=== PATIENT | male | born 1970 | race Hispanic/Latino ===

== ENCOUNTER → 2018-04-10 | Emergency (ER) | payer OTHER ==
[~2018-04-10] VITALS: Ht 175.3 cm; Wt 90.7 kg
[~2018-04-10] MED LIST: AZITHROMYCIN250 MG PO; DOCUSATE SODIU100 MG PO; IBUPROFEN600 MG PO; LIDODERM700 MG TOP; PROVENTIL HFA6.7 GM INH; SEROQUEL100 MG PO; TESSALON PERLE100 MG PO; TRUVADA 200 MG1 EACH PO; VITAMIN B-121000 MC1 PO
--- NOTE | 2018-04-10 22:24 | EKG ---
[facility] [address] [facility] [place], [place] [address] Signed Normal sinus rhythm Normal ECG When compared with ECG of 30-AUG-2016 10:40, No significant change was found Confirmed by UTE RODRIGUEZ MD ([id number]) on 04/10/2018 10:24:18 PM Electronically Signed By: UTE RODRIGUEZ MD 04/10/18 2224 PATIENT NAME: LIANNE MOSQUEDAWilliam RIVAS Electrocardiogram DATE OF : 66 PHYSICIAN: UTE RODRIGUEZ MD REPORT #: [id number] REPORT IS CONFIDENTIAL AND NOT TO BE RELEASED WITHOUT AUTHORIZATION
== END ==
LOC: ED 18:50
DX: R07.89 Other chest pain (principal); G62.9 Polyneuropathy, unspecified; Z88.5 Allergy status to narcotic agent
CPT/HCPCS: 71045; 80053; 84484; 85025; 93005; 93010; 99284

== ENCOUNTER 2020-07-25 07:30 | Day surgery (SDC) | payer OTHER ==
[~2020-07-25] VITALS: Ht 175.3 cm; Wt 95.2 kg
--- NOTE | 2020-07-25 10:01 | NUR ---
07/25/20 1001 Sheets,Ladi 0999 PT ARRIVED TO PACU ON 2L NC, VSS. PT WAKES EASILY AND DENIES CONCERNS, PT ENCOURAGED TO PASS GAS. PT ABLE TO PASS LARGE AMOUNT OF GAS. PT BACK TO SLEEP AND SMALL AMOUNT OF SNORING NOTED. VSS.
--- NOTE | 2020-07-26 06:38 | OR ---
[facility] [address] [place], [place] [address] Signed DATE OF OPERATION: 07/25/2020 SURGEON: Connor Bonilla MD DATE OF PROCEDURE: 07/25/2020 PREOPERATIVE DIAGNOSIS: Screening. POSTOPERATIVE DIAGNOSES: 1. A 4 mm polyp mid hepatic flexure. 2. A 4 mm polyp proximal transverse colon. 3. Minimal to moderate sigmoid diverticulosis. PROCEDURE: Colonoscopy with hot biopsy. ESTIMATED BLOOD LOSS: None. INDICATIONS: Erickson is a 50-year-old gentleman, asked to see me for initial screening colonoscopy. He has no lower GI complaints. There is no family history of colon cancer or polyps. In the office, I gave him a pamphlet on colonoscopy and we looked at that together along with the risks including, but not limited to gas, bloating, crampy abdominal pain, bleeding, perforation requiring surgery, and missed diagnosis. We also discussed the need for IV conscious sedation. He had expressed understanding and wished to proceed. PROCEDURE NOTE: Erickson was taken into our endoscopy suite and placed in the left lateral decubitus position. He was given IV sedation with 4 mg of Versed and 100 mcg of fentanyl. A digital rectal exam was performed was performed and this showed some induration and swelling to the prostate as expected with his age. The adult colonoscope was introduced, advanced all around into the cecum under direct visualization of the camera without difficulty. It took just a little bit of abdominal compression in order to advance the scope. His prep was quite excellent. We could easily see the appendiceal orifice and the ileocecal valve. The scope was slowly withdrawn. We took pictures throughout for photodocumentation. He had two tiny polyps easily removed with hot biopsy forceps. He does have diverticula in the sigmoid colon. They were minimal to Electronically Signed By: CONNOR BONILLA MD 07/26/20 0638 PATIENT NAME: ERICKSON MOSQUEDA OPERATIVE REPORT DATE OF : 66 REPORT #: [id number] PHYSICIAN: CONNOR BONILLA MD PCP: SANGITA RESTREPO MD REPORT IS CONFIDENTIAL AND NOT TO BE RELEASED WITHOUT AUTHORIZATION [facility] [address] [place], [place] [address] Signed moderate in size, minimal to moderate in number, and scattered about. The rectum was unremarkable. Upon retroflexion of scope, there was no additional pathology noted above the anal canal. After this, the gas was suctioned out and colonoscope removed. Erickson tolerated the procedure quite well. RECOMMENDATIONS: I will see Erickson in my office in 7 to 10 days to review his results. Connor Bonilla MD ALB/MODL /[id number] cc: Sangita Restrepo MD Copies: ~ Electronically Signed By: CONNOR BONILLA MD 07/26/20 0638 PATIENT NAME: ERICKSON MOSQUEDA OPERATIVE REPORT DATE OF : 66 REPORT #: [id number] PHYSICIAN: CONNOR BONILLA MD PCP: SANGITA RESTREPO MD REPORT IS CONFIDENTIAL AND NOT TO BE RELEASED WITHOUT AUTHORIZATION
--- NOTE | 2020-07-26 16:49 | PATH ---
[facility] [address] [facility] [place], [place] [address] Signed SPECIMEN(S): A HEPATIC FLEXURE POLYP SPECIMEN(S): B PROXIMAL TRANSVERSE POLYP SPECIMEN SOURCE: A. HEPATIC FLEXURE POLYP B. PROXIMAL TRANSVERSE POLYP CLINICAL HISTORY: Screening colonoscopy; diverticulosis, colon polyps. MICROSCOPIC DESCRIPTION: Histologic sections of all submitted blocks are examined by light microscopy. These findings, together with the gross examination, support the pathologic diagnosis. FINAL PATHOLOGIC DIAGNOSIS: A. Colon, hepatic flexure, polyp, polypectomy: - Tubular adenoma. - Negative for high-grade dysplasia or malignancy. B. Colon, proximal transverse, polyp, polypectomy: - Colonic mucosa with no histopathologic abnormality. - Negative for dysplasia or malignancy. NAL:cml:C2NR GROSS DESCRIPTION: Two specimens are received in two containers, labeled "GV." A. The specimen, labeled "GV," and designated on the requisition "hepatic flexure polypectomy," is received in formalin and consists of one fragment of pink-hanson tissue (0.3 x 0.3 x 0.2 cm). The specimen is submitted entirely in cassette (A1). B. The specimen, labeled "GV," and designated on the requisition "proximal transverse polypectomy," is received in formalin and consists of one fragment of pink-hanson tissue (0.3 x 0.2 x 0.2 cm). The specimen is submitted entirely in cassette (B1). AC (under the direct supervision of a pathologist) The Gross Description was prepared using a voice recognition system. The report was reviewed for accuracy; however, sound-alike word errors, addition and/or deletions may occur. If there is any question about this report, please contact Client Services. PERFORMING LABORATORY: The technical component was performed by [facility], Lani Randlecornel [place], PATIENT NAME: TERRY MOSQUEDA PATHOLOGY DATE OF : 66 REPORT #: [id number] PHYSICIAN: MARISOL PATHOLOGY PCP: MARISOL PEREZ MD REPORT IS CONFIDENTIAL AND NOT TO BE RELEASED WITHOUT AUTHORIZATION [facility] [address] [place], [place] [address] [place] [address] (Car Icer: Leann Simmons MD; CLIA# [id number]). Professional interpretation was performed by [facility], [address] [address] (CLIA# [id number]). Diagnostician: Latricia Rico MD Pathologist Electronically Signed 07/26/2020 Copies: ~ PATIENT NAME: TERRY MOSQUEDA PATHOLOGY DATE OF : 66 REPORT #: [id number] PHYSICIAN: MARISOL PATHOLOGY PCP: CHRIS,MARISOL MD REPORT IS CONFIDENTIAL AND NOT TO BE RELEASED WITHOUT AUTHORIZATION
== END 2020-07-25 10:55 | disposition home or self-care (01) ==
LOC: OPS 07:30 → DS 09:00 → OPS 09:00
PROVIDERS: Colon & Rectal Surgery
PROC: 0DBL8ZZ Excision of Transverse Colon, Via Natural or Artificial Opening Endoscopic (ICD-10-PCS; principal; 2020-07-25 09:00)
DX: Z12.11 Encounter for screening for malignant neoplasm of colon (principal); D12.3 Benign neoplasm of transverse colon; K57.30 Diverticulosis of large intestine without perforation or abscess without bleeding
CPT/HCPCS: 99153; G0500; J2250; J3010

== ENCOUNTER 2021-07-06 06:25 | Day surgery (SDC) | payer OTHER ==
[~2021-07-06 06:25] MED LIST changes: +CIPRO500 MG PO; +PRAVASTATIN SOD40 MG PO
--- NOTE | 2021-07-06 08:42 | NUR ---
07/06/21 0868 Sharron Hammond 0862 PATIENT ARRIVES TO PACU RESTING WITH EYES CLOSED. DOES NOT RESPOND TO VERBAL STIMULI. RESP EVEN AND UNLABORED, MASK AT 8 LITERS.
--- NOTE | 2021-07-06 10:11 | OR ---
[facility] [address] [place], [place] [address] Signed DATE OF OPERATION: 07/06/2021 SURGEON: Connor Bonilla MD PREOPERATIVE DIAGNOSES: 1. Right upper quadrant abdominal wall subcutaneous mass. 2. Epigastric versus supraumbilical trocar site incisional hernia. POSTOPERATIVE DIAGNOSES: 1. Right upper quadrant subcutaneous lipoma. 2. Significantly indurated adipose tissue overlying trocar site abdominal wall scar without hernia number. PROCEDURE: 1. Excision of right upper quadrant subcutaneous mass. 2. Wound exploration. ESTIMATED BLOOD LOSS: None. INDICATIONS: Erickson is a 51-year-old gentleman I have known for a number years. He came back with two concerns. He had a palpable mass in the right subcostal margin. He said it has been increasing in size and causes some pain. He wanted to have that removed. Clinically, it was most consistent with a lipoma. In addition, he has a supraumbilical trocar site incision that he felt was a hernia. He said sometimes he feels like it is quite large and other times he said he thinks it is smaller. On exam in the office, we thought palpable lump was slightly above the supraumbilical incisional scar. I explained to him it could be an epigastric hernia or could be a trocar site incisional hernia. He felt like both of these were bothering quite a bit. 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 We decided we would excise the lipoma and explored the wound and repaired the any hernia found. In the office, I gave him a booklet on hernias and we had reviewed those in detail. He understands the difference between the primary suture repair and a mesh repair. He understands there is risk to surgery including, but not limited to bleeding, infection, scarring, change in contour of the skin, damage to bowel infection of mesh requiring removal of recurrent hernias and chronic pain. He had expressed understanding and wished to proceed. DESCRIPTION OF PROCEDURE: Electronically Signed By: CONNOR BONILLA MD 07/06/21 1011 PATIENT NAME: ERICKSON MOSQUEDA OPERATIVE REPORT DATE OF : 66 REPORT #: [id number] PHYSICIAN: CONNOR BONILLA MD PCP: SANGITA PEREZ MD REPORT IS CONFIDENTIAL AND NOT TO BE RELEASED WITHOUT AUTHORIZATION [facility] [address] [place] [address] Signed I met with Erickson and his sister in our preop area. We all agreed on the two areas and marked them appropriately. On this occasion, Ericskon and I both agreed that the lump seemed to be more directly underneath the incision when he was lying supine rather than standing upright. Again, we did not feel this was reducible. After this, we took Erickson in the operating room and placed in the supine position under general endotracheal tube anesthesia. He was given preoperative antibiotics along with subcutaneous heparin. SCDs were utilized. He was then prepped and draped in the usual sterile fashion. We made a transverse incision over the subcutaneous mass in the right subcostal area. This was carried down and around the tissue bluntly and with the cautery. The lipoma probably 3 cm in diameter was evacuated and passed off the field. The wound was explored. No other lipoma was noted. Local anesthetic was injected into the wound. The wound was irrigated and suctioned out until clear. We closed the dermis with interrupted 3-0 subcuticular Monocryl sutures. Skin edges were reapproximated with a running 5-0 fast absorbing plain gut suture. After this, we approached the supraumbilical incision. It was opened sharply transversely with the help of a 15 blade knife. We carried this down to the tissues bluntly and with the cautery. We approached the midline fascia just above the his previous trocar sites abdominal wall scar. We carried that inferiorly toward the umbilicus. We found a rather large 2-3 cm very firm indurated round piece of adipose tissue adherent to the trocar site abdominal wall scar. However, we did not specifically find a hernia. We freed up all that tissue down to the level of umbilicus and found no additional hernia inferior to that trocar site abdominal wall scar. We excised that very indurated adipose tissue and passed it off the field. We then traveled up the midline superiorly 6 if not 8 cm looking for an epigastric hernia. He did not find one. We also palpated that subcutaneous adipose tissue superiorly and found no other concerns such as a lipoma. After that, we injected local anesthetic in the abdominal wall along with subcutaneous tissues. The wound was irrigated and suctioned out until clear. We brought the soft adipose tissue back together with interrupted 3-0 Monocryl sutures and then brought the dermis together with interrupted 3-0 subcuticular Monocryl sutures. The incision was reapproximated with a running 5-0 fast absorbing plain gut suture. Dry gauze and tape were then applied. After this, Erickson was awakened from his anesthesia, extubated in the OR, and taken to recovery room in stable condition. Connor Bonilla MD ALB/MODL Electronically Signed By: CONNOR BONILLA MD 07/06/21 1011 PATIENT NAME: ERICKSON MOSQUEDA OPERATIVE REPORT DATE OF : 66 REPORT #: [id number] PHYSICIAN: CONNOR BONILLA MD PCP: SANGITA PEREZ MD REPORT IS CONFIDENTIAL AND NOT TO BE RELEASED WITHOUT AUTHORIZATION [facility] [address] [place], [place] [address], [place] [address] Signed /[id number] cc: MD Sangita Ortiz MD Copies: CONNOR BONILLA MD ~ Electronically Signed By: CONNOR BONILLA MD 07/06/21 1011 PATIENT NAME: ERICKSON MOSQUEDA OPERATIVE REPORT DATE OF : 66 REPORT #: [id number] PHYSICIAN: CONNOR BONILLA MD PCP: SANGITA PEREZ MD REPORT IS CONFIDENTIAL AND NOT TO BE RELEASED WITHOUT AUTHORIZATION
--- NOTE | 2021-07-06 10:16 | NUR ---
AFTER RETURN TO , PT AMBULATED TO BR AND VOIDED 150 ML CLEAR YELLOW URINE. DENIES NAUSEA. REPORTS 6/10 INCISIONAL PAIN.
--- NOTE | 2021-07-06 11:13 | NUR ---
REVIEWED DISCHARGE INSTRUCTIONS WITH PT AND SISTER AT BEDSIDE. RX GIVEN WITH COPY OF DISCHARGE INSTRUCTIONS. TURKEY SANDWICH PROVIDED. REPORTS PAIN DECEREASED TO 02/07. DENIES NAUSEA
--- NOTE | 2021-07-10 08:56 | PATH ---
[facility] [place] [facility] [address] [facility] [place] [address] Signed SPECIMEN(S): A ABDOMINAL SUBQ MASS RIGHT UPPER QUADRANT SPECIMEN SOURCE: A. ABDOMINAL SUBQ MASS RIGHT UPPER QUADRANT CLINICAL HISTORY: Epigastric hernia, lipoma. Excise right upper quadrant SQ mass and repair hernia. FINAL PATHOLOGIC DIAGNOSIS: Mass, right upper quadrant, abdominal subcutaneous: - Angiolipoma. TWK:caw:C2NR MICROSCOPIC EXAMINATION: The lesion consists of a benign lipoma with a characteristic integrated pattern of vascular proliferation and adipose tissue. Atypical features are not seen, and there is no evidence of malignancy. TWK GROSS DESCRIPTION: The specimen, labeled "GV, A.," and designated on the requisition "abdominal subcutaneous mass right upper quadrant," is received in formalin and consists of a circumscribed fatty tissue nodule measuring 4.2 x 2.3 x 1.8 cm. Cut surface is homogenous and credit representative sections are submitted in cassette (A1). AT (under the direct supervision of a pathologist) The Gross Description was prepared using a voice recognition system. The report was reviewed for accuracy; however, sound-alike word errors, addition and/or deletions may occur. If there is any question about this report, please contact Client Services. PERFORMING LABORATORY: The technical component was performed by [employer], [address] [place] [id number] (Lan Analyst: Leann Simmons MD; CLIA# [id number]). The professional interpretation [facility], [address] [place] [address]. Diagnostician: Sacha Grimm MD Pathologist PATIENT NAME: TERRY MOSQUEDA PATHOLOGY DATE OF : 66 REPORT #: [id number] PHYSICIAN: INCYTE PATHOLOGY PCP: MARISOL PEREZ MD REPORT IS CONFIDENTIAL AND NOT TO BE RELEASED WITHOUT AUTHORIZATION [address] [place], [place] [address] Signed Electronically Signed 07/10/2021 Copies: ~ PATIENT NAME: TERRY MOSQUEDA PATHOLOGY DATE OF : 66 REPORT #: [id number] PHYSICIAN: INCYTE PATHOLOGY PCP: MARISOL PEREZ MD REPORT IS CONFIDENTIAL AND NOT TO BE RELEASED WITHOUT AUTHORIZATION
== END 2021-07-06 11:05 | disposition home or self-care (01) ==
LOC: DS 06:25
PROVIDERS: ATTEND Colon & Rectal Surgery
PROC: 0HB7XZZ Excision of Abdomen Skin, External Approach (ICD-10-PCS; principal; 2021-07-06 06:45)
DX: D17.1 Benign lipomatous neoplasm of skin and subcutaneous tissue of trunk (principal); E11.9 Type 2 diabetes mellitus without complications; K21.9 Gastro-esophageal reflux disease without esophagitis; G89.29 Other chronic pain; Z89.202 Acquired absence of left upper limb, unspecified level; Z88.5 Allergy status to narcotic agent
CPT/HCPCS: 00400; 88304; J0330; J0690; J1100; J1644; J1885; J2250; J2405; J2704; J2765; J3010; J7121

== ENCOUNTER 2023-06-13 08:10 | Day surgery (SDC) | payer OTHER ==
[2023-06-11 15:05] VITALS: BP 119/79
[~2023-06-13] VITALS: Ht 175.3 cm; Wt 95.5 kg
[2023-06-13 08:30] VITALS: BP 130/84
--- NOTE | 2023-06-13 12:58 | NUR ---
06/13/23 1258 Sheets,Ladi 1243 PT ARRIVED TO PACU ON RA, PERIOD OF APNEA NOTED AND O2 SAT 86%. 6L VIA MASK PLACED AND JAW THRUST USEDTO MAINTAIN AIRWAY. O2 INCREASED TO MID 90S. 1250 PT WAKES TO TACTILE STIMULI AND IS ENCOURAGED TO DEEP BREATHE OFF AND ON. PERIOD OF APNEA NOTED WHEN ASLEEP. HOB INCREASED. PT EYES REMAIN CLOSED. 1256 PT SITTING IN HIGH FOWLERS AND PERIODS OF APNEA NOTED OFF AND ON. RN CONTINUES TO WAKE PT TO BREATHE.
[2023-06-13 13:46] VITALS: BP 128/77
--- NOTE | 2023-06-13 13:55 | NUR ---
LE 1341 PATIENT BACK TO ROOM 6. REPORT RECIEVED FROM OLIVIA BUSH. PATIENT DROWSY. PATIENT BREATHING EQUAL AND UNLABORED. OXYGEN SATURATIONS ABOVE 90% ON 2 LITERS. PATIENT DENIES ANY PAIN OR BEING NAUSEATED. SURGICAL SITES CLEAN, DRY AND INTACT. IVF INFUSING. SCD'S ON. CALL LIGHT WITHIN REACH NO FUTHER NEEDS. NO QUESTIONS. WATER AND APPLE SAUCE GIVEN.
--- NOTE | 2023-06-13 13:59 | NUR ---
LE 1355 PATIENT TITRATED DOWN TO ROOM AIR. OXYGEN SATURATIONS ABOVE 90%.
--- NOTE | 2023-06-13 14:08 | NUR ---
LE 1405 PATIENT BACK ON 2 LITERS OF OXYGEN. PATIENT SLEEPING. PATIENT MAINTAINING OXYGEN 90-98%. PATIENT DE SATURATIONED DOWN TO 83% WHEN SLEEPING.
[2023-06-13 14:56] VITALS: BP 113/68
--- NOTE | 2023-06-13 15:17 | NUR ---
LE 1450 PATIENT TITRATED OFF OF OXYGEN. PATIENT MAINTAINING 90% ON ROOM AIR. PATIENT EDUCATED ON SLEEP APNEA AND THE IMPORTANCE OF SEEING HIS PCP. THE RISKS OF SLEEP APNEA. PATIENT UP TO THE RESTROOM. PATIENT VOIDED CLEAR AND YELLOW URINE. PATIENT BACK TO BED. TOLERATED IT WELL. PATIENT CALL LIGHT WITHIN REACH NO FUTHER NEEDS. NO QUESTIONS AT THIS TIME SISTER AT BEDSIDE. LE 1510 PATIENT ALERT AND ORIENTED. BREATHING EQUAL AND UNLABORED OXYGEN SATURATIONS ABOVE 90% ON ROOM AIR. PATIENT DENIES PAIN AND BEING NAUSEATED. SURGICAL DRESSING CLEAN, DRY AND INTACT. PATIENT HAS MET DISCHARGE CRITERIA. PATIENT DRESSED SELF AND TOLERATED IT WELL. PATIENT IV D/C'D WNL. PATIENT GIVEN DISCHARGE INSTRUCTIONS AND UNDERSTOOD. NO QUESTIONS AT THIS TIME. PATIENT WHEELED OUT OF FACILITY NO FUTHER NEEDS.
--- NOTE | 2023-06-13 15:36 | OR ---
[facility] [address] [place], [place] [address] Signed DATE OF OPERATION: 06/13/2023 SURGEON: Connor Bonilla MD PREOPERATIVE DIAGNOSES: 1. Three lipomas left biceps (2 x 3 cm). 2. One lipoma posterior right arm (2 x 4 cm). 3. One lipoma medial right subcostal margin (2 cm). 4. One lipoma mid right inner thigh (3 cm). 5. One lipoma anterior left thigh (2.5 cm). POSTOPERATIVE DIAGNOSES: 1. Three lipomas left biceps (2 x 3 cm). 2. One lipoma posterior right arm (2 x 4 cm). 3. One lipoma medial right subcostal margin (2 cm). 4. One lipoma mid right inner thigh (3 cm). 5. One lipoma anterior left thigh (2.5 cm). PROCEDURE: Excision of seven lipomas. ESTIMATED BLOOD LOSS: None. INDICATIONS: Erickson is a 53-year-old gentleman, who happens to be a diabetic. 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 He also donated his kidney to his mother who is still alive. He has developed at least seven lipomas across his body. He has had other lipomas removed in the past. He has three just above the prosthesis on his left arm and they are particularly troublesome. He has another lipoma in the posterior right arm in between two previous incisions. That one hurts of course when he on anything. He has another lipoma on the medial side just below the right costal margin. That is troublesome when he has to bend over and so forth. He also has one on his anterior left thigh which rubs on his pants and then on the mid right inner thigh as well. He had been to his primary care provider. He was asked to see me as a local general surgeon with respect to the above. We reviewed the nature of lipomas. He understands an incision has to be made over each one for the lipomas to be removed. There is risk including, but not limited to bleeding, infection, scarring, change in contour of the skin as well as recurrent lipomas in the same or other locations. He had expressed understanding and wished to proceed. Electronically Signed By: CONNOR BONILLA MD 06/13/23 1536 PATIENT NAME: ERICKSON MOSQUEDA OPERATIVE REPORT DATE OF : 66 REPORT #: [id number] PHYSICIAN: CONNOR BONILLA MD PCP: SANGITA PEREZ MD REPORT IS CONFIDENTIAL AND NOT TO BE RELEASED WITHOUT AUTHORIZATION [facility] [address] [place], [place] [address] Signed DESCRIPTION OF PROCEDURE: I met with Erickson in our preop area. We identified all seven lipomas and we marked each one appropriately. After this, he was taken to the operating room and placed in the supine position under general LMA anesthesia. He was given preoperative antibiotics along with subcutaneous heparin. SCDs were utilized. We placed his right arm up and over his shoulder with appropriate padding. Similarly placed his left arm out on the armboard with appropriate padding. He was then prepped and draped in usual sterile fashion from the all the way down to his thighs. We then excised each lipoma with the help of a 15 blade knife and a vertical incision over each lipoma. Each lipoma was evacuated bluntly with the cautery. Local anesthetic had been injected into each wound. The dermis of each wound was reapproximated with interrupted 3-0 subcuticular Monocryl sutures. The skin edges were reapproximated with running 5-0 fast absorbing plain gut suture. We had brought his right arm down in the neutral position after we excised that lipoma 1st. Each incision was then covered with dry gauze and tape. Erickson was awakened from his anesthesia, extubated in the OR, and taken to the recovery room in stable condition. Connor Bonilla MD ALB/MODL /[id number] cc: MD Sangita Ortiz MD Copies: CONNOR BONILLA MD ~ Electronically Signed By: CONNOR BONILLA MD 06/13/23 1536 PATIENT NAME: ERICKSON MOSQUEDA OPERATIVE REPORT DATE OF : 66 REPORT #: [id number] PHYSICIAN: CONNOR BONILLA MD PCP: SANGITA PEREZ MD REPORT IS CONFIDENTIAL AND NOT TO BE RELEASED WITHOUT AUTHORIZATION
--- NOTE | 2023-06-17 17:43 | PATH ---
[facility] [address], [place] [address] Signed SPECIMEN(S): A RIGHT ARM SPECIMEN(S): B RT SUBCOSTAL MASS SPECIMEN(S): C LEFT ARM SPECIMEN(S): D LEFT THIGH ANTERIOR SPECIMEN(S): E RIGHT THIGH INNER SPECIMEN SOURCE: A. RIGHT ARM B. RT SUBCOSTAL MASS C. LEFT ARM D. LEFT THIGH ANTERIOR E. RIGHT THIGH INNER CLINICAL HISTORY: Multiple lipomas, multiple extremities / torso. FINAL PATHOLOGIC DIAGNOSIS: A. 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 B. 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 C. 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 D. 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 E. 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 JVR:joyce:[id number] MICROSCOPIC EXAMINATION: Histologic sections of all submitted blocks are examined by light microscopy. These findings, together with the gross examination, support the pathologic diagnosis. GROSS DESCRIPTION: A. The specimen, labeled and designated "Arley, right arm," is received in formalin and consists of two fragments of yellow lobular adipose tissue aggregating to 5.1 x 4.3 x 1.8 cm and weighing 17.9 g. No skin is identified. The external surfaces are inked blue. The tissue is sectioned to reveal yellow lobulated cut surfaces with no areas of hemorrhage or necrosis seen. Hhas PATIENT NAME: TERRY MOSQUEDA PATHOLOGY DATE OF : 66 REPORT #: [id number] PHYSICIAN: [facility] PATHOLOG[facility] PCP: MARISOL PEREZ MD REPORT IS CONFIDENTIAL AND NOT TO BE RELEASED WITHOUT AUTHORIZATION [facility] [address], [place] [address] Signed sections are submitted in (A1-A2). B. The specimen, labeled and designated "Arley, right subcostal mass," is received in formalin and consists of a single fragment of yellow lobulated adipose tissue measuring 4.5 x 3.4 x 2.2 cm and weighing 12.7 g. No skin is identified. The external surface is inked blue. The tissue is serially sectioned to reveal yellow lobular cut surfaces with no areas of hemorrhage or necrosis identified. Hhas sections are submitted in (B1-B2). C. The specimen, labeled and designated "Arley, left arm," is received in formalin and consists of four fragments of yellow lobulated adipose tissue measuring 4.0 x 3.9 x 1.6 cm and weighing 9.3 g. No skin is identified. The external surface is inked blue. The tissue is serially sectioned to reveal yellow lobular cut surfaces with no areas of hemorrhage or necrosis identified. Hhas sections are submitted in (C1). D. The specimen, labeled and designated "Arley, left thigh anterior," is received in formalin and consists of a single fragment of yellow lobulated adipose tissue measuring 2.9 x 1.7 x 1.0 cm and weighing 2.4 g. No skin is identified. The external surface is inked blue. The tissue is serially sectioned to reveal yellow lobular cut surfaces with no areas of hemorrhage or necrosis identified. Hhas sections are submitted in (D1). E. The specimen, labeled and designated "Arley, right inner thigh," is received in formalin and consists of a single fragment of yellow lobulated adipose tissue measuring 3.3 x 1.9 x 1.5 cm and weighing 4.5 g. No skin is identified. The external surface is inked blue. The tissue is serially sectioned to reveal yellow lobular cut surfaces with no areas of hemorrhage or necrosis identified. Hhas sections are submitted in (E1). KATERIN (under the direct supervision of a pathologist) The Gross Description was prepared using a voice recognition system. The report was reviewed for accuracy; however, sound-alike word errors, addition and/or deletions may occur. If there is any question about this report, please contact Client Services. PERFORMING LABORATORY: Technical component was performed by [facility], [address] [place] [id number] (CLIA# [id number]). Professional interpretation was performed by [facility] - [address] [address] (CLIA#: [id number]). PATIENT NAME: TERRY MOSQUEDA PATHOLOGY DATE OF : 66 REPORT #: [id number] PHYSICIAN: [email or web address] PCP: MARISOL PEREZ MD REPORT IS CONFIDENTIAL AND NOT TO BE RELEASED WITHOUT AUTHORIZATION [facility] [address] [place] [id number] Signed Diagnostician: Dat Burnett MD Pathologist Electronically Signed 06/17/2023 Copies: ~ PATIENT NAME: LIANNE MOSQUEDAWilliam RIVAS PATHOLOGY DATE OF : 66 REPORT #: [id number] PHYSICIAN: MARISOL UMANZOR PCP: MARISOL PEREZ MD REPORT IS CONFIDENTIAL AND NOT TO BE RELEASED WITHOUT AUTHORIZATION
== END 2023-06-13 15:10 | disposition home or self-care (01) ==
LOC: DS 08:10
PROVIDERS: ATTEND Colon & Rectal Surgery
PROC: 0JBD0ZZ Excision of Right Upper Arm Subcutaneous Tissue and Fascia, Open Approach (ICD-10-PCS; 2023-06-13)
PROC: 0JBM0ZZ Excision of Left Upper Leg Subcutaneous Tissue and Fascia, Open Approach (ICD-10-PCS; 2023-06-13)
PROC: 0JBL0ZZ Excision of Right Upper Leg Subcutaneous Tissue and Fascia, Open Approach (ICD-10-PCS; 2023-06-13)
PROC: 0JB60ZZ Excision of Chest Subcutaneous Tissue and Fascia, Open Approach (ICD-10-PCS; 2023-06-13)
PROC: 0JBF0ZZ Excision of Left Upper Arm Subcutaneous Tissue and Fascia, Open Approach (ICD-10-PCS; principal; 2023-06-13 09:45)
DX: D17.24 Benign lipomatous neoplasm of skin and subcutaneous tissue of left leg (principal); D17.23 Benign lipomatous neoplasm of skin and subcutaneous tissue of right leg; D17.22 Benign lipomatous neoplasm of skin and subcutaneous tissue of left arm; D17.21 Benign lipomatous neoplasm of skin and subcutaneous tissue of right arm; D17.4 Benign lipomatous neoplasm of intrathoracic organs; E11.9 Type 2 diabetes mellitus without complications; E78.2 Mixed hyperlipidemia
CPT/HCPCS: 00400; 88304; J0131; J0690; J1100; J1644; J1885; J2405; J2704; J3010; J7121